=== PATIENT | female | born 1975 | race Caucasian/White ===

== ENCOUNTER 2025-01-24 10:15 | Outpatient (OUT) | payer BC, SELFPAY ==
[2025-01-24 11:08] LABS: Hematocrit 36.3 % (36.0-48.0); Hemoglobin 11.3 g/dL (12.0-16.0); Immature Granulocytes Abs Auto 0.01 10^3/uL (0.00-0.03); Immature Granulocytes Pct Auto 0.2 % (0.0-0.5); Lymphocytes Absolute Auto 1.3 10^3/uL (1.2-3.8); Mean Corpuscular HGB Conc 31.1 g/dL (29.9-35.2); Mean Corpuscular Hemoglobin 27.8 pg (26.7-34.0); Mean Corpuscular Volume 89.2 fL (81.0-99.0); Platelet Count 333 10^3/uL (150-450); Red Blood Count 4.07 10^6/uL (4.20-5.40); White Blood Count 4.6 10^3/uL (4.0-11.0)
[2025-01-24 11:30] LABS: Alanine Aminotransferase 25 U/L (14-59); Albumin Globulin Ratio 1.3; Albumin Level 3.7 g/dL (3.4-5.0); Alkaline Phosphatase 41 U/L (46-116); Anion Gap 11.6; Aspartate Amino Transferase 16 U/L (15-37); Blood Urea Nitrogen 14.0 mg/dL (7.0-18.0); Calcium 8.9 mg/dL (8.5-10.1); Carbon Dioxide 29.0 mmol/L (21.0-32.0); Chloride 105 mmol/L (98-107); Estimated GFR (African America >60 (>=60 mL/min/1.73m^2); Estimated GFR (Non-African Ame >60 (>=60 mL/min/1.73m^2); Globulin 2.9 g/dL; Glucose 101 mg/dL (74-106); Potassium 4.6 mmol/L (3.5-5.1); Sodium 141 mmol/L (136-145); Total Protein 6.6 g/dL (6.4-8.2); Triglycerides 39 mg/dL (<=150)
[2025-01-24 11:31] LABS: Cholesterol 242 mg/dL (<=200); HDL Cholesterol 97 mg/dL (40-60); Thyroid Stimulating Hormone 4.432 uIU/mL (0.358-3.740); VLDL CHOLESTEROL 7.8 mg/dL
[2025-01-24 11:59] LABS: Ferritin 7.0 ng/mL (8.0-252.0)
== END 2025-01-24 10:16 | disposition home or self-care (01) ==
LOC: LAB 10:20
PROVIDERS: PCP Internal Medicine; Visit Provider Internal Medicine
DX: Z00.00 Encounter for general adult medical examination without abnormal findings (principal)
CPT/HCPCS: 36415; 80053; 80061; 82728; 84443; 85025